=== PATIENT | male | born 1960 | race Caucasian/White ===

== ENCOUNTER 2020-05-24 09:47 | Day surgery (SDC) | payer OTHER ==
[2020-05-23 09:18] VITALS: BMI 28.3
[2020-05-24] MEDS ORDERED: TROPICAMIDE 1% OPHTH SOLN 15 ML BOTTLE ONE (10:01)
[2020-05-24] MEDS ORDERED: CYCLOPENTOLATE HCL 1% OPHTH SOLN 2 ML BOTTLE ONE (10:01)
[2020-05-24] MEDS ORDERED: OFLOXACIN 0.3% OPHTHALMIC SOLUTION 5 ML BOTTLE ONE (10:01)
[2020-05-24] MEDS ORDERED: PHENYLEPHRINE 2.5% OPHTH SOLN 15 ML BOTTLE ONE (10:01)
[2020-05-24] MEDS ORDERED: KETOROLAC TROMETHAMINE 0.5% EYE DROP 1 DROP DROPS ONE (10:01)
--- OUTSIDE RECORDS SUMMARY | 2020-05-24 10:06 | XMS ---
:1960 [facility] Providers Name Role Phone GRETCHEN CALLAHAN Unavailable GRETCHEN CALLAHAN Unavailable GRETCHEN CALLAHAN Unavailable GRETCHEN CALLAHAN Unavailable Re-disclosure Warning The records that you are about to access may contain information from federally- assisted alcohol or drug abuse programs. If such information is present, then the following federally mandated warning applies: This information has been disclosed to you from records protected by federal confidentiality rules (42 CFR part 2). The federal rules prohibit you from making any further disclosure of this information unless further disclosure is expressly permitted by the written consent of the person to whom it pertains or as otherwise permitted by 42 CFR part 2. A general authorization for the release of medical or other information is NOT sufficient for this purpose. The Federal rules restrict any use of the information to criminally investigate or prosecute any alcohol or drug abuse patient.The records that you are about to access may contain highly sensitive health information, the redisclosure of which is protected by Article 27-F of the [facility] Public Health law. If you continue you may haveaccess to information: Regarding HIV / AIDS; Provided by facilities licensed or operated by the [facility] Office of Mental Health; or Provided by the [facility] Office for People With Developmental Disabilities. If such information is present, then the following [facility] mandated warning applies: This information has been disclosed to you from confidential records which are protected by state law. State law prohibits you from making any further disclosure of this information without the specific written consent of the person to whom it pertains, or as otherwise permitted by law. Any unauthorized further disclosure in violation of state law may result in a fine or detention sentence or both. A general authorization for the release of medical or other information is NOT sufficient authorization for further disclosure. Allergies and Adverse Reactions Type Description Substance Reaction Status Data Source(s ) Allergy to Active Apple Skin Rashes, Active STEPHANIE ([facility]) Allergy to Active Cherries Skin Rashes, Active STEPHANIE ([facility]) No Known No Known No Known eCW2 ([facility] Allergies Allergies [facility]) No Information No Information No Information eC W2 ([facility]) No Information No Information No Information eC W2 ([facility]) No Information No Information No Allergy eCW2 ( [facility] Information [facility]) No Information No Information No Allergy eCW2 ( [facility]) No Information No Information No Allergy eCW2 ( [facility]) No Information No Information No Allergy eCW2 ( [facility]) No Known No Known No known eCW2 ([facility] Allergies Allergies allergies [facility] Medical (situation) Center) No Information No Information No Allergy eCW2 ( [facility] Information [facility] Medica l Available Center) No Information No Information No Allergy eCW2 ( [facility]) No Information No Information No Allergy eCW2 ( [facility]) No Known No Known No known eCW2 ([facility] Allergies Allergies allergies [facility] Medical (situation) Center) No Information No Information No Allergy eCW2 ( [facility]) No Information No Information No Allergy eCW2 ( [facility] Information [facility]) Encounters Encounter Providers Location Date Indications Data Source(s ) Outpatient<td Attender: GRETCHEN Mata Assessment [use XAVIER RENDON [facility] ID="[facility] 0 For S.o.a.p. Roland on ypeDescription 02:30:00 Note Free Neighborho od ID0">COMPLETE PM EDT - Text]Routine Health Ce nter) PHYSICAL History and EXAM</td><td>L 0 Physical EE LEAVELLE 11:59:00 PA</td><td>Gre PM EDT [facility]</td><td >03/25/2020</t d><td><content ID="encounterD iagnosisID0-0" >Routine History and Physical</cont ent>, <content ID="encounterD iagnosisID0-1" >Assessment [use For S.o.a.p. Note Free Text]</content ></td> Assessment [use For S.o.a.p. Note Free T ext] Routine History and Physical [place] [facility] [place] [facility] 06/15/2019 12:00 :00 AM eCW2 ([facility]) [place] [facility] [place] [facility] 12/15/2018 12:00 :00 AM eCW2 ([facility]) [place] [facility] [place] [facility] 07/01/2018 12:00 :00 AM eCW2 ([facility]) [place] [facility] [place] [facility] 05/16/2018 12:00 :00 AM eCW2 ([facility]) [place] [facility] [place] [facility] 05/09/2018 12:00 :00 AM eCW2 ([facility]) [place] [facility] [place] [facility] 03/21/2018 12:00 :00 AM eCW2 ([facility]) [place] [facility] [place] [facility] 02/05/2018 12:00:00 AM eCW2 ([facility]) [place] [facility] [place] [facility] 02/05/2018 12:00 :00 AM eCW2 ([facility]) [place] [facility] [place] [facility] 01/17/2018 12:00 :00 AM eCW2 ([facility]) [place] [facility] [place] [facility] 01/17/2018 12:00 :00 AM eCW2 ([facility]) [place] [facility] [place] [facility] 01/17/2018 12:00 :00 AM eCW2 ([facility]) [place] [facility] [place] [facility] 01/02/2018 12:00 :00 AM eCW2 ([facility]) [place] [facility] [place] [facility] 12/20/2017 12:00 :00 AM eCW2 ([facility]) [place] [facility] [place] [facility] 12/02/2017 12:00 :00 AM eCW2 ([facility]) [place] [facility] [place] [facility] 11/21/2017 12:00 :00 AM eCW2 ([facility]) [place] [facility] [place] [facility] 11/12/2017 12:00 :00 AM eCW2 ([facility]) [place] [facility] [place] [facility] 09/19/2017 12:00:00 AM eCW2 ([facility]) [place] [facility] [place] [facility] 09/17/2017 12:00:00 AM eCW2 ([facility]) [place] [facility] [place] [facility] 02/15/2017 12:00 :00 AM eCW2 ([facility]) [place] [facility] [place] [facility] 02/06/2017 12:00 :00 AM eCW2 ([facility]) [place] [facility] [place] [facility] 12/20/2016 12:00 :00 AM eCW2 ([facility]) [place] [facility] [place] [facility] 11/29/2016 12:00:0 0 AM eCW2 ([facility]) [place] [facility] [place] [facility] 11/15/2016 12:00 :00 AM eCW2 ([facility]) [place] [facility] [place] [facility] 11/15/2016 12:00 :00 AM eCW2 ([facility]) [place] [facility] [place] [facility] 10/31/2016 12:00 :00 AM eCW2 ([facility]) [place] [facility] [place] [facility] 09/18/2016 12:00:00 AM eCW2 ([facility]) [place] [facility] [place] [facility] 09/18/2016 12:00 :00 AM eCW2 ([facility]) [place] [facility] [place] [facility] 08/20/2016 12:00 :00 AM eCW2 ([facility]) [place] [facility] [place] [facility] 07/11/2016 12:00 :00 AM eCW2 ([facility]) [place] [facility] [place] [facility] 05/15/2016 12:00 :00 AM eCW2 ([facility]) [place] [facility] [place] [facility] 05/11/2016 12:00:00 AM eCW2 ([facility]) [place] [facility] [place] [facility] 05/11/2016 12:00 :00 AM eCW2 ([facility]) [place] [facility] [place] [facility] 01/11/2016 12:00 :00 AM eCW2 ([facility]) [place] [facility] [place] [facility] 01/11/2016 12:00 :00 AM eCW2 ([facility]) [place] [facility] [place] [facility] 01/09/2016 12:00 :00 AM eCW2 ([facility]) [place] [facility] [place] [facility] 12/09/2015 12:00:00 AM eCW2 ([facility]) [place] [facility] [place] [facility] 11/24/2015 12:00 :00 AM eCW2 ([facility]) [place] [facility] [place] [facility] 11/22/2015 12:00 :00 AM eCW2 ([facility]) [place] [facility] [place] [facility] 11/10/2015 12:00 :00 AM eCW2 ([facility]) [place] [facility] [place] [facility] 11/10/2015 12:00 :00 AM eCW2 ([facility]) [place] [facility] [place] [facility] 10/11/2015 12:00 :00 AM eCW2 ([facility]) [place] [facility] [place] [facility] 10/11/2015 12:00 :00 AM eCW2 ([facility]) [place] [facility] [place] [facility] 10/11/2015 12:00:00 AM eCW2 ([facility]) [place] [facility] [place] [facility] 10/05/2015 12:00 :00 AM eCW2 ([facility]) [place] [facility] [place] [facility] 09/22/2015 12:00:00 AM eCW2 ([facility]) [place] [facility] [place] [facility] 09/16/2015 12:00 :00 AM eCW2 ([facility]) [place] [facility] [place] [facility] 06/03/2015 12:00 :00 AM eCW2 ([facility]) [place] [facility] [place] [facility] 06/03/2015 12:00 :00 AM eCW2 ([facility]) [place] [facility] [place] [facility] 06/03/2015 12:00 :00 AM eCW2 ([facility]) [place] [facility] [place] [facility] 05/18/2015 12:00:00 AM eCW2 ([facility]) [place] [facility] [place] [facility] 05/17/2015 12:00 :00 AM eCW2 ([facility]) [place] [facility] [place] [facility] 05/17/2015 12:00 :00 AM eCW2 ([facility]) [place] [facility] [place] [facility] 05/16/2015 12:00 :00 AM eCW2 ([facility]) [place] [facility] [place] [facility] 06/14/2011 12:00 :00 AM eCW2 ([facility]) [place] [facility] [place] [facility] 02/06/2011 12:00 :00 AM eCW2 ([facility]) [place] [facility] [place] [facility] 02/06/2011 12:00:00 AM eCW2 ([facility]) [place] [facility] [place] [facility] 02/05/2011 12:00 :00 AM eCW2 ([facility]) [place] [facility] [place] [facility] 12/29/2010 12:00 :00 AM eCW2 ([facility]) [place] [facility] [place] [facility] 12/20/2010 12:00 :00 AM eCW2 ([facility]) [place] [facility] [place] [facility] 12/18/2010 12:00 :00 AM eCW2 ([facility]) [place] [facility] [place] [facility] 12/13/2010 12:00 :00 AM eCW2 ([facility]) [place] [facility] [place] [facility] 12/06/2010 12:00 :00 AM eCW2 ([facility]) [place] [facility] [place] [facility] 11/23/2010 12:00 :00 AM eCW2 ([facility]) [place] [facility] [place] [facility] 11/15/2010 12:00 :00 AM eCW2 ([facility]) [place] [facility] [place] [facility] 11/15/2010 12:00 :00 AM eCW2 ([facility]) [place] [facility] [place] [facility] 07/21/2010 12:00:00 AM eCW2 ([facility]) [place] [facility] [place] [facility] 05/31/2010 12:00 :00 AM eCW2 ([facility]) [place] [facility] [place] [facility] 05/10/2010 12:00 :00 AM eCW2 ([facility]) [place] [facility] [place] [facility] 04/10/2010 12:00 :00 AM eCW2 ([facility]) [place] [facility] [place] [facility] 04/07/2010 12:00 :00 AM eCW2 ([facility]) Immunizations Vaccine Date Status Description Data Source(s) No Known Immunizations completed eCW2 ([facility]) No Known Immunizations completed eCW2 ([facility]) No Known Immunizations completed eCW2 ([facility]) No Known Immunizations completed eCW2 ([facility]) No Known Immunizations completed eCW2 ([facility]) No Known Immunizations completed eCW2 ([facility]) No Known Immunizations completed eCW2 ([facility] No Known Immunizations completed eCW2 ([facility]) No Known Immunizations completed eCW2 ([facility]) No Known Immunizations completed eCW2 ([facility]) No Known Immunizations completed eCW2 ([facility]) No Known Immunizations completed eCW2 ([facility]) No Known Immunizations completed eCW2 (Open [facility]) No Known Immunizations completed eCW2 ([facility]) Medications Medication Brand Start Product Dose Route Administrative Pharm[facility] Indications Reaction Description Data Name Date Form Instructions Instructions Source(s) Metformin metFOR 03/25/ UNIT 1 active metFORMIN STEPHANIE hydrochlori MIN 2020 HCl ([place] de 1000 MG HCl 12:00: Aidan Oral Tablet 1000MG 00 AM Neigh borho metFORMIN Oral EDT od Health HCl 1000MG Tablet [place]) Oral Tablet Januvia Januvi 03/25/ UNIT 1 active Januvia GRE ENWAY 100MG Oral a 2020 ([place] Tablet 100MG 12:00: Aidan Oral 00 AM Neighborho Tablet EDT [facility]) atorvastati atorva 11/15/ active 1 tab(s ) eCW2 (Open n 40 MG statin 2016 Door Oral Tablet 40 mg 12:00: Famil y atorvastati 00 AM Medical n 40 mg EDT Center) atorvastati atorva 11/15/ active 1 tab(s ) eCW2 (Open n 40 MG statin 2016 [facility] Oral Tablet 40 mg 12:00: Famil y atorvastati 00 AM Medical n 40 mg EDT Center) atorvastati atorva 11/15/ active 1 tab(s ) eCW2 (Open n 40 MG statin 2016 [facility] Oral Tablet 40 mg 12:00: Famil y atorvastati 00 AM Medical n 40 mg EDT Center) atorvastati atorva 11/15/ active 1 tab(s ) eCW2 (Open n 40 MG statin 2016 [facility] Oral Tablet 40 mg 12:00: Famil y atorvastati 00 AM Medical n 40 mg EDT Center) Glucometer UNK 09/18/ suspend as direct ed eCW2 (Open Machine Dx: 2017 ed [facility] Diabetes 12:00: Family E11.9 00 AM Medical EST Center) Glucometer UNK 09/18/ suspend as direct ed eCW2 (Open Machine Dx: 2016 [facility] Diabetes 12:00: Family E11.9 00 AM Medical EST Center) Metformin Sepume 09/18/ active 1 tab(s) eCW2 (Open hydrochlori t 1000 2016 [facility] de 1000 MG mg-50 12:00: Family / mg 00 AM Medical sitagliptin EST Center) 50 MG Oral Tablet [Janumet] Janumet 1000 mg-50 mg Glucometer UNK suspend as direct ed eCW2 (Open Machine Dx: 2016 ed [facility] Diabetes 12:00: Family E11.9 00 AM Medical EST Center) Metformin Sepume 09/18/ active 1 tab(s) eCW2 (Open hydrochlori t 1000 2016 Door de 1000 MG mg-50 12:00: Family / mg 00 AM Medical sitagliptin EST Center) 50 MG Oral Tablet [Janumet] Janumet 1000 mg-50 mg Glucometer UNK 09/18/ suspend as direct ed eCW2 (Open Machine Dx: 2016 ed [facility] Diabetes 12:00: Family E11.9 00 AM Medical EST Center) Metformin Sepume 09/18/ active 1 tab(s) eCW2 (Open hydrochlori t 1000 2016 Door de 1000 MG mg-50 12:00: Family / mg 00 AM Medical sitagliptin EST Center) 50 MG Oral Tablet [Janumet] Janumet 1000 mg-50 mg Lisinopril lisino 05/17/ active 1 tab(s) eCW2 (Open 10 MG Oral pril 2014 Door Tablet 10 mg 12:00: Family lisinopril 00 AM Medical 10 mg EDT Center) Lisinopril lisino 05/17/ active 1 tab(s) eCW2 (Open 10 MG Oral pril 2015 Door Tablet 10 mg 12:00: Family lisinopril 00 AM Medical 10 mg EDT Center) Lisinopril lisino 05/17/ active 1 tab(s) eCW2 (Open 10 MG Oral pril 2014 Door Tablet 10 mg 12:00: Family lisinopril 00 AM Medical 10 mg EDT Center) Lisinopril lisino 05/17/ active 1 tab(s) eCW2 (Open 10 MG Oral pril 2014 Door Tablet 10 mg 12:00: Family lisinopril 00 AM Medical 10 EDT Center) Unknown complet eCW2 (Ope n Medications ed Door [facility]) Unknown complet eCW2 (Ope n Medications [facility]) atorvastati atorva active 1 tab(s) eCW2 (Open n 40 MG statin Door Oral Tablet 40 mg [facility] atorvastati Medical n 40 mg [place]) Unknown complet eCW2 (Ope n Medications ed [facility]) Unknown complet eCW2 (Ope n Medications [facility]) Metformin Janume active 1 tab(s) eC W2 (Open hydrochlori t 1000 Door de 1000 MG mg-50 Family / mg Medical sitagliptin [place]) 50 MG Oral Tablet [Janumet] Janumet 1000 mg-50 mg Unknown complet eCW2 (Ope n Medications ed Door [facility]) Unknown complet eCW2 (Ope n Medications [facility] No Known complet eCW2 (Op en Medications [facility]) Unknown complet eCW2 (Ope n Medications [facility]) No Known complet eCW2 (Op en Medications [facility]) Lisinopril lisino active 1 tab(s) e CW2 (Open 10 MG Oral pril Door Tablet 10 mg [facility] lisinopril Medical 10 mg [place]) Insurance Providers Payer name Policy type / Policy ID Covered Covered libertarian's Policy Plan Coverage type libertarian ID relationship to Nair Information nair [facility] MEDICAID [id number] [facility] - Health Individual 0 Self 0 Insurance Policy Plan [facility] Problems, Conditions, and Diagnoses Code Display Name Description Problem Type Effective Data Sour ce(s) Dates H52.203 Hyperopic Hyperopic Problem 06/15/2019 eCW2 ([facility] astigmatism of astigmatism of 12:00:00 AM Famil y Medical both eyes both eyes EDT Center) E11.9 Diabetes mellitus Diabetes mellitus Problem 06/15/2019 eCW2 ([facility] type 2 without type 2 without 12:00:00 AM Famil y Medical retinopathy retinopathy EDT Center) 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[facility] 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 12:00:00 AM Family Medi apurva cataract of both cataract of both EDT Ce nter) eyes eyes 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 11/10/2015 eCW2 ( [facility] depression depression 12:00:00 AM [facility] Medica l EST Center) 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 11/10/2015 eCW2 ( [facility] depression depression 12:00:00 AM [facility]) 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 11/10/2015 eCW2 ( [facility] depression depression 12:00:00 AM [facility]) 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 11/10/2015 eCW2 ( [facility] depression depression 12:00:00 AM [facility]) I10 Hypertension Hypertension Problem 06/03/2015 eCW2 ([facility] 12:00:00 AM [facility]) E11.9 Diabetes mellitus Diabetes mellitus Problem 06/03/2015 eCW2 ([facility] 12:00:00 AM [facility]) I10 Hypertension Hypertension Problem 06/03/2015 eCW2 ([facility] 12:00:00 AM [facility]) I10 Hypertension Hypertension Problem 06/03/2015 eCW2 ([facility] 12:00:00 AM [facility]) E11.9 Diabetes mellitus Diabetes mellitus Problem 06/03/2015 eCW2 ([facility] 12:00:00 AM [facility]) I10 Hypertension Hypertension Problem 06/03/2015 eCW2 ([facility] 12:00:00 AM [facility]) [id number] Type II diabetes Diabetes Mellitus Problem 03/25/2010 Otto MEJIAS ([place] mellitus without Type 2 Without 12:00:[address] [facility] non complication Complication [facility]) Surgeries/Procedures Procedure Description Date Indications Data Source(s) Surgery 20 yrs ago Surgery 20 yrs ago 03/25/2020 Otto MEJIAS ([place] Pterygium removed Pterygium removed 12:00:00 AM [facility]) History of No History of No 03/25/2020 STEPHANIE ([place]ilary nt carotid bruits carotid bruits 12:00:[address] [facility]) CAPILLARY BLOOD DRAW 12/15/2018 eCW2 (O pen Door 12:00:00 AM [facility]) GLYCATED HEMOGLOBIN 12/15/2018 eCW2 (Op en Door TEST, IN-HOUSE 12:00:00 AM [facility]) SPECIMEN HANDLING 01/17/2018 eCW2 ([facility]00[facility] [place] ASSAY TEST FOR 01/17/2018 eCW2 (Open Do or BLOOD, FECAL 12:00:00 [facility] [place] Spar Machine Operator Pretest 15M 01/17/2018 eCW2 (Op [facility] Door 12:00:00 AM [facility]) N.GONORRHOEAE, DNA, 01/17/2018 eCW2 ([facility] AMP PROB 12:00:00 [facility] [place] GLYCATED HEMOGLOBIN 01/17/2018 eCW2 ([facility] TEST, [facility]SE [facility] [place] CAPILLARY BLOOD DRAW 01/17/2018 eCW2 ([facility] pen [facility] 12:00:00 [facility] [place]) GLUCOSE, BLOOD QUANT 01/17/2018 eCW2 ([facility] 12:00:00 [facility] [place] CHYLMD TRACH, DNA, 01/17/2018 eCW2 (Ope n Door AMP PROBE 12:00:00 [facility] [place] INSTI/ORAQUICK HIV, 01/17/2018 eCW2 (Op [facility] SINGLE ASSAY 12:00:00 [facility] [place]) SBIRT, 15-30 MIN 01/17/2018 eCW2 ([facility] 12:00:00 [facility] [place] BHIS 01/17/2018 eCW2 ([facility] Screen/Interven/Tria [facility]:00:[facility] [place] COMPREHEN METABOLIC 11/12/2017 eCW2 ([facility] PANEL 12:00:00 [facility] [place] GLYCATED HEMOGLOBIN 11/12/2017 eCW2 (Op [facility] TEST 12:00:00 [facility] [place]) Microalbumin, Urine, 11/12/2017 eCW2 (O pen Door In-house 12:00:00 [facility] [place] PSA, TOTAL 11/12/2017 eCW2 ([facility] 12:00:00 [facility] [place]) ASSAY OF BLOOD 11/12/2017 eCW2 (Open Do or LIPOPROTEIN 12:00:00 [facility] [place]) LIPID PANEL 11/12/2017 eCW2 ([facility] 12:00:00 [facility] [place]) GLUCOSE, BLOOD QUANT 11/12/2017 eCW2 (O pen Door 12:00:00 AM [facility]) CAPILLARY BLOOD DRAW 11/12/2017 eCW2 (O pen Door 12:00:00 AM [facility]) ASSAY THYROID STIM 11/12/2017 eCW2 (Ope n Door HORMONE 12:00:00 AM [facility]) ASSAY OF PSA 11/12/2017 eCW2 ([facility] 12:00:00 AM [facility]) No Known procedures No Known procedures e CW2 ([facility]) No Known procedures No Known procedures e CW2 ([facility] No Known procedures No Known procedures e CW2 ([facility] No Known procedures No Known procedures e CW2 ([facility]) No Known procedures No Known procedures e CW2 ([facility] No Known procedures No Known procedures e CW2 ([facility] No Known procedures No Known procedures e CW2 ([facility]) No Known procedures No Known procedures e CW2 ([facility] No Known procedures No Known procedures e CW2 ([facility]) No Known procedures No Known procedures e CW2 ([facility]) Results ID Date Data Source [id number] 05/20/2020 11:26:00 AM EDT [facility] Name Value Range Interpretation Description Data Sup porting Code Source(s) Document(s ) SARS [facility] coronavirus 2 RNA This lab was ordered by RENEE [facility] and reported by [facility]. ID Date Data Source [id number] 03/25/2020 04:06:57 PM EDT SEGUN Donald (Sylvester [id number] [facility]) Name Value Range Interpretation Description Data Source(s ) Supporting Code Document(s ) No Results No Results No Results STEPHANIE ([facility] Recorded For Aidan Specified [facility]) ID Date Data Source [id number] 12/19/2019 12:00:00 AM EDT [facility] Name Value Range Interpretation Code Description Data Kathleen rce(s) Supporting Document(s ) 2019-nCoV [facility] RNA XXX NIVIA+probe- Imp This lab was [facility] and reported by [facility]. ID Date Data Source * Hgb A1c Fingerstick POS.0 12/15/2018 12:00:00 AM EDT eCW2 ([facility]) Name Value Range Interpretation Description Data Sup porting Code Source(s) Document(s ) Hemoglobin 8.6 4 - 6 Hemoglobin A1c eCW2 (Open A1c/Hemoglobin [facility] .total in [facility] [place]) ID Date Data Source * Glucose Random Finger 01/17/2018 12:00:00 AM EDT eCW2 ([facility]) Name Value Range Interpretation Code Description Data Kathleen rce(s) Supporting Document(s ) 182 30 - 218 Result eCW2 ([facility] mg/dl [facility]) ID Date Data Source * Hgb A1c Fingerstick POS.1 01/17/2018 12:00:00 AM EDT eCW2 ([facility]) Name Value Range Interpretation Description Data Sup porting Code Source(s) Document(s ) Hemoglobin 7.8 4 - 6 Hemoglobin A1c eCW2 (Open A1c/Hemoglobin [facility] .total in [facility] Center) ID Date Data Source -Chlamydia/GC Amplification 01/17/2018 12:00:00 AM eCW2 (Ope n [facility] urine.0 EDT [facility] Center) Name Value Range Interpretation Description Data Sup porting Code Source(s) Document(s ) Chlamydia NEGATIVE NEGATIVE C.TRACHOMATIS eCW2 (Open trachomatis+Ne RRNA URN [facility] gonorrhoeae Center) rRNA [Presence] in Urine by DNA probe Clostridium NEGATIVE NEGATIVE N.GONORRHOEAE eCW2 (Open difficile RRNA URN [facility] toxin A+B Medical [Presence] in Center) Stool ID Date Data Source -TSH W/RFX TO FREE T4 01/08/2018 12:00:00 AM EDT eCW2 ([facility]) Name Value Range Interpretation Code Description Data Kathleen rce(s) Supporting Document(s ) 1.160 0.178-4.53 TSH W/RFX TO eCW2 (Open 0 FREE T4 Door [facility]) ID Date Data Source -PSA Total+ Free 01/08/2018 12:00:00 AM EDT eCW2 (Open Do or [facility]) Name Value Range Interpretation Description Data Sup porting Code Source(s) Document(s ) Prostate 0.16 <4.00 PSA Total eCW2 (Open Specific Ag [facility] Free/Prostate Medical specific Center) Ag.total in Serum or Plasma Clozapine 44 See Below % FREE PSA eCW2 (Open [Mass/volume] [facility] in Serum or Medical Plasma Center) ID Date Data Source -Hemoglobin A1c 01/08/2018 12:00:00 AM EDT eCW2 (Open or [facility]) Name Value Range Interpretation Description Data Sup porting Code Source(s) Document(s ) Hemoglobin 8.3 <5.7 Hemoglobin A1c eCW2 (Open A1c/Hemoglobin [facility] .total in Medical Blood Center) ID Date Data Source [id number] 01/08/2018 12:00:00 AM EDT eCW2 ([facility]) Name Value Range Interpretation Description Data Sup porting Code Source(s) Document(s ) Sodium 138 135-147 Sodium eCW2 (Open [Moles/volume] in [facility] Serum or [facility] Center) Albumin/Globulin 1.8 1.1-2.9 A/G Ratio eCW2 (Open [Mass Ratio] in [facility] or [facility]) Globulin 2.4 1.7-3.7 Globulin eCW2 (Open [Mass/volume] in [facility] Serum [facility]) Protein 6.7 5.9-8.4 Total Protein eCW2 (Open [Mass/volume] in [facility] or Plasma [facility] Center) Albumin 4.3 3.5-5.2 Albumin eCW2 (Open [Mass/volume] in [facility] Serum or [facility] Center) Chloride 101 96-108 Chloride eCW2 (Open [Moles/volume] in [facility] or [facility]) Carbon dioxide, 24 22-29 CO2 eCW2 (Open total [facility] [Moles/volume] in Medical Serum or Plasma Center) Urea nitrogen 15 6-20 BUN eCW2 (Open [Mass/volume] in [facility] or [facility]) Potassium 4.4 3.5-5.5 Potassium eCW2 (Open [Moles/volume] in [facility] or [facility]) 122 >or=60 e-GFR, eCW2 ([facility]) 105 >or=60 e-GFR eCW2 (Open [facility]) Mycoplasma 21.7 10.0-28 BUN/Creat eCW2 (Open pneumoniae DNA .0 Ratio [facility] [Units/volume] in Medical Blood by Probe and Center) target amplification method Creatinine 0.69 0.67-1. Creatinine eCW2 (Open [Mass/volume] in 31 Door [facility] Serum or Plasma Medical Center) Aspartate 18 <40 AST eCW2 (Open aminotransferase [facility] [Enzymatic Medical activity/volume] in Center) Serum or Plasma Calcium 8.8 8.6-10. Calcium eCW2 (Open [Mass/volume] in 4 Door [facility] Serum or Plasma Medical Center) Alkaline 58 40-156 Alk Phos eCW2 (Open phosphatase [facility] [Enzymatic Medical activity/volume] in Center) Serum or Plasma Bilirubin.total 0.3 <1.2 Bilirubin, eCW2 (Open [Mass/volume] in Total Door [facility] Serum or Plasma [facility]) Alanine 25 <41 ALT eCW2 (Open aminotransferase [facility] [Enzymatic Medical activity/volume] in Center) Serum or Plasma Glucose 199 70-99 Glucose eCW2 (Open [Mass/volume] in [facility] Serum or Plasma [facility]) ID Date Data Source -Lipid Panel (w/ Direct LDL) 01/08/2018 12:00:00 AM EDT eCW2 (Open [facility]) Name Value Range Interpretation Description Data Sup porting Code Source(s) Document(s ) Cholesterol in HDL 46 >40 HDL CHOL., eCW2 (Open [Presence] in DIRECT [facility] Serum or Plasma by Medical Electrophoresis Center) Cholesterol 128 <200 Cholesterol eCW2 (Open [Moles/volume] in [facility] Serum or Plasma [facility]) 18 7-32 VLDL, eCW2 (Open CALCULATED [facility]) 1.63 <3.56 LDL/HDL Ratio eCW2 (Open [facility]) 2.8 <7.4 Chol/HDL Ratio eCW2 (Open [facility]) 36 >14 HDL as % of eCW2 (Open Cholesterol [facility]) Triglyceride 92 <150 Triglycerides eCW2 (Open [Mass/volume] in [facility] Blood [facility]) Cholesterol in LDL 75 <100 LIPOPROT. (LDL) eCW2 (Open [Mass/volume] in DIRECT [facility] Serum or Plasma by Medical calculation Center) ID Date Data Source * Microalbumin In House 11/12/2017 12:00:00 AM EDT eCW2 ([facility]pe n [facility]) Name Value Range Interpretation Description Data Sup porting Code Source(s) Document(s ) Microalbumin/ 30 Microallbumin eCW2 (Open Creatinine (<20 mg/L) [facility] [Ratio] in Medical Urine Center) R' wave <30 A/C Ratio (<30 eCW2 (Open amplitude in mg/g) [facility] lead III Medical Center) 200 Creatinine eCW2 (Open (10-300mg/dl) Door [facility]) ID Date Data Source * Glucose Random Finger Stick 11/12/2017 12:00:00 AM EDT eCW 2 ([facility]) Name Value Range Interpretation Code Description Data Kathleen rce(s) Supporting Document(s ) 195 30 - 218 Result eCW2 ([facility] mg/dl [facility]) Procedure Social History Code Duration Value Status Description Data Source(s ) Smoking 03/25/2020 Never smoked completed Never smoked STEPHANIE ( [facility] 04:06:55 PM EDT tobacco tobacco (finding) Ve rnon (finding) [facility]) Assertion Finding completed Finding relating STEPHANIE ([facility] relating to to drug misuse [place] drug misuse behavior [facility] behavior [facility]) (finding) Assertion Smoker completed Smoker (finding) STEPHANIE ([facility] (finding) [facility]) Assertion Finding of completed Finding of STEPHANIE (Moun t activity of activity of daily [facility] living (finding) [facility] (finding) [facility] [place]) Assertion Tobacco user completed Tobacco user STEPHANIE ( [facility] (finding) (finding) [facility]) Assertion Physical completed Physical handicap GREENWA Y ([facility] handicap (finding) [place] ([facility]) Assertion Finding of life completed Finding of life GREE NWWENDY ([facility] event (finding) event (finding) [place] [facility]) Assertion Exercise completed Exercise history STEPHANIE ([facility] history finding finding (finding) Ve rnon ([facility]) Assertion Caffeine user completed Caffeine user STEPHANIE ([facility] (finding) (finding) [facility]) Assertion Current drinker completed Current drinker GREE NWWENDY ([facility] of alcohol of alcohol [place] (finding) (finding) [facility]) Smoking Never Smoker completed Never Smoker eCW2 ([facility]) Smoking Unknown if ever completed Unknown if ever eCW2 ([facility] smoked smoked [facility]) Smoking Unknown if ever completed Unknown if ever eCW2 ([facility] smoked smoked [facility]) Smoking Unknown if ever completed Unknown if ever eCW2 ([facility] smoked smoked [facility]) Smoking Unknown if ever completed Unknown if ever eCW2 ([facility] smoked smoked [facility]) Smoking Unknown if ever completed Unknown if ever eCW2 ([facility] smoked smoked [facility]) Smoking Unknown if ever completed Unknown if ever eCW2 ([facility] smoked smoked [facility]) Smoking Never Smoker completed Never Smoker eCW2 ([facility]) Smoking Never Smoker completed Never Smoker eCW2 ([facility]) Smoking Unknown if ever completed Unknown if ever eCW2 ([facility] smoked smoked [facility]) Smoking Unknown if ever completed Unknown if ever eCW2 ([facility] smoked smoked [facility]) Smoking Never Smoker completed Never Smoker eCW2 ([facility]) Smoking Unknown if ever completed Unknown if ever eCW2 ([facility] smoked smoked [facility]) Smoking Unknown if ever completed Unknown if ever eCW2 ([facility] smoked smoked [facility]) Vital Signs ID Date Data Source UNK Name Value Range Interpretation Code Description Data Source(s) PhenX - pain, 0 0 STEPHANIE ([facility] abdominal - type [facility] Health and intensity [place]) protocol Complete Physical Body surface area Derived from 1.83 m2 1.83 m2 STEPHANIE ([facility]) Complete Physical Body mass index (BMI) 29.2 kg/m2 29.2 kg/m2 GRE ENWAY ([place] [Ratio] [facility]) Complete Physical Body weight 170 [lb_av] 170 [lb_av] STEPHANIE ([facility]) Complete Physical Body height 64 [in_us] 64 [in_us] STEPHANIE ([facility]) Complete Physical Body temperature 98.9 [degF] 98.9 [degF] GREENW AY ([facility]) Complete Physical Heart rate rhythm 1 1 GREENWA Y ([facility]) Complete Physical Heart rate 87 /min 87 /min STEPHANIE ([facility]) Complete Physical Diastolic blood pressure 88 mm[Hg] 88 mm[Hg] STEPHANIE ([facility]) Complete Physical Systolic blood pressure 170 mm[Hg] 170 mm[Hg] G MARISOLWILVER ([facility]) Complete Physical Diastolic blood pressure 70 mm[Hg] 70 mm[Hg] eCW2 ([facility] ) Systolic blood pressure 114 mm[Hg] 114 mm[Hg] e CW2 ([facility] ) Body mass index (BMI) [Ratio] 28.94 kg/m2 28.94 kg/m2 eCW2 ([facility] ) Body weight Measured 166 [lb_av] 166 [lb_av] eC W2 ([facility] ) Body height 63.50 [in_us] 63.50 [in_us] eCW2 (O [facility] ) Body temperature 98.7 [degF] 98.7 [degF] eCW2 ( [facility] ) Diastolic blood pressure 78 mm[Hg] 78 mm[Hg] eCW2 ([facility] ) Systolic blood pressure 128 mm[Hg] 128 mm[Hg] e CW2 ([facility] ) Body mass index (BMI) [Ratio] 29.20 kg/m2 29.20 kg/m2 eCW2 ([facility] ) Body weight Measured [lb_av] eCW2 ([facility] ) Body height 63.50 [in_us] 63.50 [in_us] eCW2 ([facility] ) Body temperature 97.7 [degF] 97.7 [degF] eCW2 ( [facility] ) Diastolic blood pressure mm[Hg] eCW2 ([facility] ) Systolic blood pressure 140 mm[Hg] 140 mm[Hg] e CW2 ([facility] ) Body mass index (BMI) [Ratio] 30.16 kg/m2 30.16 kg/m2 eCW2 ([facility] ) Body weight Measured 173 [lb_av] 173 [lb_av] eC W2 ([facility] ) Body height 63.50 [in_us] 63.50 [in_us] eCW2 ([facility] ) Body temperature 98.6 [degF] 98.6 [degF] eCW2 ( [facility] ) Patient Treatment Plan of Care Planned Activity Planned Date Details Description Data Source (s) atorvastatin 40 MG Oral 11/15/2016 12:00:00 eCW2 ([facility] Tablet AM [facility]) atorvastatin 40 MG Oral 11/15/2016 12:00:00 eCW2 ([facility] Tablet AM [facility]) atorvastatin 40 MG Oral 11/15/2016 12:00:00 eCW2 ([facility] Tablet AM [facility]) Metformin hydrochloride 09/18/2016 12:00:00 eCW2 ([facility] 1000 MG / sitagliptin 50 AM EST [facility]am [facility] MG Oral Tablet [Janumet] [facility]) Metformin hydrochloride 09/18/2016 12:00:00 eCW2 ([facility] 1000 MG / sitagliptin 50 AM EST [facility] MG Oral Tablet [Janumet] [facility]) Lisinopril 10 MG Oral 05/17/2015 12:00:00 eCW2 ([facility] Tablet [facility]) Lisinopril 10 MG Oral 05/17/2015 12:00:00 eCW2 ([facility] Tablet AM [facility]) Lisinopril 10 MG Oral 05/17/2015 12:00:00 eCW2 ([facility] Tablet [facility]) Metformin hydrochloride eCW2 ([facility] 1000 MG / sitagliptin 50 Fam [facility] MG Oral Tablet [Janumet] [facility])
[2020-05-24] MEDS: TROPICAMIDE 1% OPHTH SOLN 15 ML BOTTLE OD SCH ×5 (10:15→10:35)
[2020-05-24] MEDS: PHENYLEPHRINE 2.5% OPHTH SOLN 15 ML BOTTLE OD SCH ×5 (10:15→10:35)
[2020-05-24] MEDS: CYCLOPENTOLATE HCL 1% OPHTH SOLN 2 ML BOTTLE OD SCH ×5 (10:15→10:35)
[2020-05-24] MEDS: OFLOXACIN 0.3% OPHTHALMIC SOLUTION 5 ML BOTTLE OD SCH ×5 (10:15→10:35)
[2020-05-24] MEDS: KETOROLAC TROMETHAMINE 0.5% EYE DROP 1 DROP DROPS OD SCH ×5 (10:15→10:35)
[2020-05-24 10:24] VITALS: TEMP 97.8
[2020-05-24] MEDS ORDERED: ACETAMINOPHEN 325 MG TABLET (FP) PO PRN (11:24)
[2020-05-24] MEDS ORDERED: MIDAZOLAM HCL 2 MG/2 ML SINGLE DOSE VIAL ONE ×2 (11:44→11:59)
[2020-05-24] MEDS ORDERED: ONDANSETRON 4 MG/2 ML VIAL ONE (11:48)
[2020-05-24] MEDS ORDERED: POVIDONE-IODINE 5% OPHTHALMIC PREP 30 ML SOLUTION ONE (13:00)
[2020-05-24] MEDS ORDERED: NEO/POLYMYX B SULF/DEXAMETH OPHTHALMIC 5ML BOTTLE ONE (13:00)
[2020-05-24] MEDS ORDERED: BETAXOLOL HCL 0.25% OPHTHALMIC 10 ML DROPSBTL ONE (13:00)
[2020-05-24] MEDS ORDERED: EPI-SHUGARCAINE (EPINEPHRINE 0.025% & LIDOCAINE-PF 0.75%) 4ML ONE (13:00)
[2020-05-24] MEDS ORDERED: TETRACAINE 0.5% OPHTH SOLN 2 ML BOTTLE ONE (13:00)
[2020-05-24] MEDS ORDERED: BACITRACIN/POLYMYXIN OPH OINT 3.5 GM TUBE ONE (13:00)
[2020-05-24 13:12] VITALS: BP 121/75; PULSE 71
--- NOTE | 2020-05-24 15:18 | OP ---
DATE OF OPERATION: 05/24/2020 PREOPERATIVE DIAGNOSIS: Cataract, right eye. POSTOPERATIVE DIAGNOSIS: Cataract, right eye. PROCEDURE: Cataract extraction via phacoemulsification with insertion of posterior chamber lens implant, right eye. SURGEON: Nayely Horowitz MD HANDLING TECH: Nayely Horowitz MD ANESTHESIA: Topical with sedation. ESTIMATED BLOOD LOSS: Less than 1 mL. COMPLICATIONS: None. SPECIMENS: None. PROCEDURE: The patient was identified in the holding area. After all risks, benefits and alternatives were explained to the patient, informed consent was obtained. The right eye was marked with a marking pen. The patient then entered the operating room on an eye stretcher. After formal timeout was performed, topical tetracaine eye drops were instilled onto the right eye. The right eye was then prepped and draped in the usual sterile fashion. An eyelid speculum was placed beneath the eyelids of the right eye. A superotemporal paracentesis incision was created using a 15-degree blade. Topical and a preservative-free epinephrine and preservative-free lidocaine were then injected into the anterior chamber. Viscoelastic was then injected into the anterior chamber. It was noted that the pupil was insufficiently dilated, so 4 iris hooks were inserted into the eye to capture and dilate the pupil to about 6 to 7 mm. Then an inferotemporal main incision was created using a 2.4-mm keratome blade. Then a 360-degree continuous curvilinear capsulorrhexis was then created using bent cystotome and Utrata forceps. Hydrodissection was performed using balanced saline solution on a cannula. Phacoemulsification was introduced. It disassembled and removed the nucleus in its entirety. Irrigation/aspiration was then used to remove any remaining cortical material from the eye. The capsular bag was reformed using viscoelastic. An Mehrdad model [id number] with a power of 23.5 diopters, serial number [id number] was inspected, found to be defect free and injected in the capsular bag. Irrigation/aspiration was then used to remove any remaining viscoelastic from the eye and then all 4 iris hooks were then removed from the eye and again 1 more episode of irrigation/aspiration was then performed to clear away any excess debris and viscoelastic from the eye. All wounds were hydrated with balanced saline solution, noted to be watertight. The lens was perfectly centered in the capsular bag. The anterior chamber was deep. The eye had a red reflex and the eye had an adequate pressure. Topical antibiotic eye drops and ointment were then administered to the right eye. The eyelid speculum was removed from the right eye. The right eye was shielded. Patient tolerated the procedure well, left the operating room in stable condition, to follow up in the eye clinic tomorrow morning at 10 o'clock. NAYELY HOROWITZ M.D. [place]/[id number]
== END 2020-05-24 13:49 | disposition home or self-care (01) ==
LOC: FASU 09:47
PROVIDERS: ATTEND Ophthalmology
PROC: 08RJ3JZ Replacement of Right Lens with Synthetic Substitute, Percutaneous Approach (ICD-10-PCS; principal; 2020-05-24 12:01)
DX: H26.9 Unspecified cataract (principal)
CPT/HCPCS: 82962

== ENCOUNTER 2020-07-12 09:35 | Day surgery (SDC) | payer OTHER ==
[2020-07-08 11:16] VITALS: BMI 28.3
[2020-07-12] MEDS ORDERED: KETOROLAC TROMETHAMINE 0.5% EYE DROP 1 DROP DROPS ONE (09:58)
[2020-07-12] MEDS ORDERED: PHENYLEPHRINE 2.5% OPHTH SOLN 15 ML BOTTLE ONE (09:58)
[2020-07-12] MEDS ORDERED: CYCLOPENTOLATE HCL 1% OPHTH SOLN 2 ML BOTTLE ONE (09:58)
[2020-07-12] MEDS ORDERED: TROPICAMIDE 1% OPHTH SOLN 15 ML BOTTLE ONE (09:58)
[2020-07-12] MEDS ORDERED: OFLOXACIN 0.3% OPHTHALMIC SOLUTION 5 ML BOTTLE ONE (09:58)
[2020-07-12] MEDS: PHENYLEPHRINE 2.5% OPHTH SOLN 15 ML BOTTLE OS SCH ×5 (10:30→10:50)
[2020-07-12] MEDS: TROPICAMIDE 1% OPHTH SOLN 15 ML BOTTLE OS SCH ×5 (10:30→10:50)
[2020-07-12] MEDS: KETOROLAC TROMETHAMINE 0.5% EYE DROP 1 DROP DROPS OS SCH ×5 (10:30→10:50)
[2020-07-12] MEDS: OFLOXACIN 0.3% OPHTHALMIC SOLUTION 5 ML BOTTLE OS SCH ×5 (10:30→10:50)
[2020-07-12] MEDS: CYCLOPENTOLATE HCL 1% OPHTH SOLN 2 ML BOTTLE OS SCH ×5 (10:30→10:50)
[2020-07-12] MEDS ORDERED: ACETAMINOPHEN 325 MG TABLET (FP) PO PRN (10:59)
[2020-07-12] MEDS ORDERED: MIDAZOLAM HCL 2 MG/2 ML SINGLE DOSE VIAL ONE (12:24)
[2020-07-12] MEDS ORDERED: BSS (NA/CA/MG/K) BALANCED SALT SOLUTION OPHTH SOLN 15 ML BOTTLE ONE ×2 (12:58→14:04)
[2020-07-12 13:22] VITALS: TEMP 98.5
[2020-07-12 13:51] VITALS: BP 126/78; PULSE 85
[2020-07-12] MEDS ORDERED: BACITRACIN/POLYMYXIN OPH OINT 3.5 GM TUBE ONE (14:04)
[2020-07-12] MEDS ORDERED: POVIDONE-IODINE 5% OPHTHALMIC PREP 30 ML SOLUTION ONE (14:04)
[2020-07-12] MEDS ORDERED: EPI-SHUGARCAINE (EPINEPHRINE 0.025% & LIDOCAINE-PF 0.75%) 4ML ONE (14:04)
[2020-07-12] MEDS ORDERED: TETRACAINE 0.5% OPHTH SOLN 2 ML BOTTLE ONE (14:04)
[2020-07-12] MEDS ORDERED: EPINEPHrine/PF 1 MG/1 ML (1:1,000) AMPULE ONE (14:04)
[2020-07-12] MEDS ORDERED: BETAXOLOL HCL 0.25% OPHTHALMIC 10 ML DROPSBTL ONE (14:04)
[2020-07-12] MEDS ORDERED: NEO/POLYMYX B SULF/DEXAMETH OPHTHALMIC 5ML BOTTLE ONE (14:04)
== END 2020-07-12 13:45 | disposition home or self-care (01) ==
LOC: FASU 09:35
PROVIDERS: ATTEND Ophthalmology
PROC: 08RK3JZ Replacement of Left Lens with Synthetic Substitute, Percutaneous Approach (ICD-10-PCS; principal; 2020-07-12 12:35)
DX: H26.9 Unspecified cataract (principal)
CPT/HCPCS: 82962